=== PATIENT | female | born 1985 | race American Indian/Alaskan Native ===

== ENCOUNTER 2022-03-13 17:12 | Emergency (ER) | payer MEDICAID ==
[2022-03-13] MEDS ORDERED: TETRACAINE 0.5% OPHTH SOLN 4ML OU PRN (21:22)
--- NOTE | 2022-03-13 21:32 | Emergency Department Report ---
ED Eye Problem HPI - General Chief complaint: Eye Problems Stated complaint: EYE BURNING Source: patient Mode of arrival: Ambulatory Limitations: No Limitations - History of Present Illness Initial comments: Patient is a 36-year-old -[place] female with no past medical history presents to the ED with complaint of acute onset persistent right eye pain after removing contact lenses over 12 hours ago. Patient states that the pain has been constant and persistent and that she noticed that there was thick purulent discharge draining from her eyes about 6 hours ago. Patient also complains of photophobia and foreign body sensation in her right eye. Patient denies fever, chills, nausea and vomiting, chest pain, shortness of breath, fall, headache, nasal and sinus congestion, neck pain or vision loss. MD chief complaint: eye pain (right eye pain), eye redness, other (right eye purulent discahrge) -: Sudden, hour(s) (12) Onset Description: sudden Location: right eye Place: home If Injury: other (unknown) Eye Symptoms: burning, redness, pain, foreign body sensation, discharge, blurry vision, photophobia Severity: severe Severity scale (0 -10): 8 If Pain, Quality: sharp, burning, throbbing Consistency: constant Context: other (unknown, suspected injury) Associated Symptoms: none. denies: headache, neck pain, nausea/vomiting, cough, rhinorrhea, fever, shortness of breath, other Treatments Prior to Arrival: irrigated eye - Related Data Patient Tetanus UTD: Yes Previous Rx's Medication Instructions Recorded Last Taken Type Gentamicin 0.3% Ophth Soln 1 - 2 drops OP Q4H #5 ml 03/13/22 Unknown Rx Ibuprofen [Motrin] 600 mg PO Q8H PRN #30 tablet 03/13/22 Unknown Rx Allergies Allergy/AdvReac Type Severity Reaction Status Date / Time No Known Allergies Allergy Unverified 03/13/22 19:47 ED Review of Systems ROS: Stated complaint: EYE BURNING Other details as noted in HPI Constitutional: denies: chills, fever Eyes: eye pain (right), eye discharge (right), vision change (blurry) ENT: denies: ear pain, throat pain Respiratory: denies: cough, shortness of breath, wheezing Cardiovascular: denies: chest pain, palpitations Endocrine: no symptoms reported Gastrointestinal: denies: abdominal pain, nausea, vomiting, diarrhea Genitourinary: denies: urgency, dysuria, discharge Musculoskeletal: denies: back pain, joint swelling, arthralgia Skin: denies: rash, lesions Neurological: denies: headache, weakness, paresthesias Psychiatric: denies: anxiety, depression Hematological/Lymphatic: denies: easy bleeding, easy bruising ED Past Medical Hx - Medications Home Medications: Home Medications Medication Instructions Recorded Confirmed Last Taken Type Gentamicin 0.3% Ophth Soln 1 - 2 drops OP Q4H #5 ml 03/13/22 Unknown Rx Ibuprofen [Motrin] 600 mg PO Q8H PRN #30 tablet 03/13/22 Unknown Rx ED Physical Exam - General Limitations: No Limitations General appearance: alert, in no apparent distress - Head Head exam: Present: atraumatic, normocephalic, normal inspection - Eye Eye exam: Present: normal appearance, PERRL, EOMI, other (Erythematous right conjunctiva with thick purulent discharge and corneal abrasion) Pupils: Present: normal accommodation - ENT ENT exam: Present: normal exam, normal orophraynx, mucous membranes moist, TM's normal bilaterally, normal external ear exam - Neck Neck exam: Present: normal inspection, full ROM. Absent: tenderness - Respiratory Respiratory exam: Present: normal lung sounds bilaterally. Absent: respiratory distress, wheezes, rales, rhonchi, chest wall tenderness, accessory muscle use, decreased breath sounds, prolonged expiratory - Cardiovascular Cardiovascular Exam: Present: regular rate, normal rhythm, normal heart sounds. Absent: systolic murmur, diastolic murmur, rubs, gallop - GI/Abdominal GI/Abdominal exam: Present: soft, normal bowel sounds. Absent: tenderness, guarding, hyperactive bowel sounds, hypoactive bowel sounds, organomegaly - Extremities Exam Extremities exam: Present: normal inspection, full ROM, normal capillary refill. Absent: tenderness - Back Exam Back exam: Present: normal inspection, full ROM. Absent: tenderness, CVA tenderness (R), CVA tenderness (L), muscle spasm, paraspinal tenderness, vertebral tenderness - Neurological Exam Neurological exam: Present: alert, oriented X3, CN II-XII intact, normal gait, reflexes normal - Psychiatric Psychiatric exam: Present: normal affect, normal mood - Skin Skin exam: Present: warm, dry, intact, normal color. Absent: rash ED Course Vital Signs 03/13/22 03/13/22 19:43 21:51 Temperature 98.9 F 98.2 F Pulse Rate 98 H 69 Respiratory 16 16 Rate Blood Pressure 125/77 121/74 [Right] O2 Sat by Pulse 97 100 Oximetry ED Medical Decision Making - Medical Decision Making This is a 36-year-old -[place] female with no past medical history presents to the ED with complaint of acute onset persistent right eye pain after removing contact lenses over 12 hours ago. Patient states that the pain has be en constant and persistent and that she noticed that there was thick purulent discharge draining from her eyes about 6 hours ago. Patient also complains of photophobia and foreign body sensation in her right eye. In the ED, patient is alert and oriented x3 and is not in any distress. Patient was treated for pain in the ED and tetracaine eyedrop solution was also added to the right eye for anesthesia and pain control. Physical exam revealed anterior right corneal abrasion on anterior right cornea. An improvised eye patch was placed on the patient's right eye and the patient will discharge home on antibiotic eyedrops and oral pain medications and was given a referral to the case planner Dr. Mathews for follow-up. Patient is advised return to the ED immediately if symptoms get worse. - Differential Diagnosis Corneal abrasion; bacterial conjunctivitis; eye injury Critical care attestation.: If time is entered above; I have spent that time in minutes in the direct care of this critically ill patient, excluding procedure time. ED Disposition Clinical Impression: Acute bacterial conjunctivitis of right eye Right corneal abrasion Qualifiers: Encounter type: initial encounter Qualified Code(s): S05.01XA - Injury of conjunctiva and corneal abrasion without foreign body, right eye, initial encounter Right eye injury Qualifiers: Encounter type: initial encounter Qualified Code(s): S05.91XA - Unspecified injury of right eye and orbit, initial encounter Disposition: 01 HOME / SELF CARE / HOMELESS Is pt being admited?: No Does the pt Need Aspirin: No Condition: Stable Instructions: Bacterial Conjunctivitis, Adult, [id number], Corneal Abrasion, [id number], How to Use Eye Drops and Eye Ointments Additional Instructions: The examination of the right eyes showed anterior right corneal abrasion possibly traumatic from using contact lenses, and it is now infected. Therefore take pain medication by mouth as advised, drink plenty of fluids, apply the antibiotic eyedrops as advised and follow-up with the case planner Dr. Mathews as advised. Return to the ED immediately if symptoms get worse with Prescriptions: Gentamicin 0.3% Ophth Soln 1 - 2 drops OP Q4H #5 ml Ibuprofen [Motrin] 600 mg PO Q8H PRN #30 tablet PRN Reason: Pain Referrals: DORCAS MATHEWS MD [Staff Physician] - 3-5 Days Forms: Work/School Release Form(ED) Time of Disposition: 21:31 Print Language: LATVIAN
[2022-03-13] MEDS ORDERED: TETANUS,DIPH,PERTUSS(ACELL) VACCINE 0.5 ML SYRINGE IM ONE (21:41)
[2022-03-13] MEDS ORDERED: IBUPROFEN 600 MG TAB PO ONE (21:41)
[2022-03-13 21:52] VITALS: BP 121/74
== END 2022-03-13 22:30 | disposition home or self-care (01) ==
LOC: ED 17:12
DX: S05.01XA Injury of conjunctiva and corneal abrasion without foreign body, right eye, initial encounter (principal); H10.89 Other conjunctivitis; X58.XXXA Exposure to other specified factors, initial encounter; Y93.89 Activity, other specified; Y92.89 Other specified places as the place of occurrence of the external cause; Y99.8 Other external cause status
CPT/HCPCS: 90471; 90715; 99282